=== PATIENT | female | born 1970 | race Caucasian/White ===

== ENCOUNTER 2024-11-08 09:01 | Outpatient (RCR) | payer BC, SELFPAY ==
--- NOTE | 2024-11-03 11:37 | CTCCONSULT_ITS ---
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 Camryn Cortez NP/Barbi Ren MD Reason for consultation. Patient with diagnosis of left breast in situ/strong family history of breast cancer History of Present Illness: Patient a 54-year-old lady who underwent excisional biopsy of left breast mass 08/04/[address] Grupo Villanueva gross size 14 x 10 x 9 mm. This revealed DCIS comedo and solid subtype high nuclear grade 3 microcalcification extensively present ER/MN negative Ki-67 60%. Patient underwent gene testing revealing BRIP1 Variant of Unknown Significance with ovarian breast cancer gene in pathological form. On 09/24/2024 patient underwent completion left mastectomy and simple right mastectomy with bilateral sentinel lymph node biopsy, revealing no malignancy in left and and right LCIS. Past Medical History: Prior tubal ligation endometrial ablation attention deficit disorder Family history. Multiple family history with breast cancer including 1 sibling 1 maternal aunt and 2 paternal aunts ; father had prostate cancer Meds. 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 ABD: Soft no organomegaly tenderness EXT: No sinus clubbing or edema Assessment: 1. Left breast DCIS receptors negative with strong family history of breast cancer 2. Gene testing result BRIP1 VUS noted for association with ovarian and breast cancer. 3. Underwent bilateral simple mastectomy and sentinel lymph node biopsy. 09/24/2024 4. Removal of DCIS left breast, LCIS right breast, no malignancy seen in sentinel nodes or adjacent tissues removed. No need for any adjuvant radiation therapy. 5. Has scheduled consultation with medical oncologist Dr. Alcala. 6. Thank you for allowing us to evaluate this patient. Cc Camryn Cortez NP/Barbi Ren MD Electronically signed by: Janusz Longoria MD, DABR 11/03/2024 11:35 AM
--- NOTE | 2024-11-09 01:00 | CTCCONSULT_ITS ---
Patient: JOEL BANG : 1970 MR#: [id number] Page 2 of 3 CONSULTATION NOTE DATE OF CONSULTATION: 11/08/2024 NAME: JOEL BANG ACCOUNT: [id number] : 1970 AGE: 54 REFERRING PHYSICIAN: Grupo Villanueva MD PRIMARY PHYSICIAN: Grupo Villanueva MD REASON FOR VISIT: Consult for DCIS and LCIS ONCOLOGY HISTORY: DIAGNOSIS: Intraductal carcinoma in situ of left breast [ICD10] D05.12 DATE OF DIAGNOSIS: DCIS - Left breast - dx 08/04/2024 LCIS - Right breast - dx 09/24/24 STAGE/TNM: DCIS - Left breast - dx 08/04/2024 LCIS - Right breast - dx 09/24/24 TREATMENT HISTORY: Care?Plan Start?Date Cycle Day Intent HISTORY OF PRESENT ILLNESS: 54-year-old female with DCIS and LCIS s/p bilateral mastectomy .. 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 Alive Women's Multivitamin - 4.5 mg iron- 120 mcg-60 mcg 1 tab Daily 2. Vitamin D3 - 5,000 unit 1 tab Daily 3. Vyvanse - 50 mg 1 Capsule Daily Medications Last Reconciled by Cheryl Rodriguez RN on 11/08/2024 ALLERGIES: No Known Drug Allergies REVIEW OF SYSTEMS: A complete 14-point review of systems was performed and is negative except as noted in interval history. PHYSICAL EXAMINATION: VITAL SIGNS: Temperature?99, B/P?157/101, Height?62.5?inches, Oxygen?Saturation?99% Weight?124?lbs (Change?since?11/03/24:?0?lbs) PAIN: 0 - No pain ECOG Performance Status: 0 - Asymptomatic and fully active GENERAL APPEARANCE: Appears well, in no apparent distress, appropriately interactive. HEENT: Normocephalic, no temporal wasting, normal conjunctiva, no scleral icterus, normal hearing, lips without lesions, neck normal range of motion. CARDIOVASCULAR: Not assessed. PULMONARY: Normal respiratory effort, no respiratory distress or use of accessory muscles, speaking in full sentences, no tachypnea or cyanosis. SKIN: Normal skin appearance. NEUROLOGIC: Alert and oriented x4. PSHYCHIATRIC: Appropriate affect, mood normal, behavior normal, intact thought and speech. LABORATORY DATA: I have personally reviewed and interpreted each of the patient?s relevant lab tests, abnormal findings are below: Date ASSESSMENT/PLAN: DCIS and LCIS 54 yr old female to establish care for DCIS and LCIS An abnormal gene associated with breast cancer and ovarian cancer s/p bilateral mastectomy refer to gynecology for oophorectomy ORDERS: Order # Description [id number] RETURN TO CLINIC: 3 months BILLING AND COMPLIANCE: I reviewed external records from providers outside my specialty as summarized above. I spent a total of 50 minutes on this patient?s care on the day of their visit excluding time spent related to any billed procedures. This time includes time spent with the patient as well as time spent documenting in the medical record, reviewing patients records and tests, obtaining history, placing orders, communicating with other healthcare professionals, counseling the patient, family or caregiver, and/or care coordination for the diagnoses above. Electronically Signed by: Peter Alcala MD T: 12:58 AM CC: PCP: Grupo Villanueva Referring: Grupo Villanueva This document was completed utilizing speech recognition software. Grammatical errors, random word insertions, pronoun errors, and incomplete sentences are an occasional consequence of this system due to software limitations, ambient noise, and hardware issues. Any formal questions or concerns about the content, text or information contained within the body of this dictation should be directly addressed to the provider for clarification.
== END 2024-11-15 23:59 | disposition home or self-care (01) ==
LOC: SCTC 09:01
PROVIDERS: PCP Family Medicine; Referring Provider Surgery; Visit Provider Radiology Therapeutic Radiology
DX: D05.01 Lobular carcinoma in situ of right breast (principal); D05.12 Intraductal carcinoma in situ of left breast; Z17.1 Estrogen receptor negative status [ER-]; Z17.22 Progesterone receptor negative status; Z90.13 Acquired absence of bilateral breasts and nipples
CPT/HCPCS: 99213; G0463

== ENCOUNTER 2024-12-07 08:23 | Outpatient (AMB) | payer MEDICAID, SELFPAY ==
[2024-12-07 08:33] VITALS: BP 143/92; PULSE 18; RESP 18; TEMP 36.2; O2SAT 99; BMI 21.9
--- NOTE | 2024-12-07 08:33 | AMB.GYNCLNOT ---
Vital Signs 12/07/24 08:33 Height 1.6 m Height Method Stated Weight 56.245 kg Weight Measurement Method Standing Scale BMI 21.9 BP 143/92 H Blood Pressure Source Automatic Cuff Blood Pressure Location Left Upper Arm Position Sitting Respiration 18 Pulse 18 L Pulse Source Monitor Temp 97.2 F Temp Source Oral Pulse Oximetry (%) 99 Oxygen Delivery Method Room Air Allergies/Home Meds Allergies & Medications Allergies No Known Allergies Allergy (Verified 12/07/24 08:36) Medication Reconciliation ibuprofen 800 mg tablet 800 mg PO TID #30 tabs 09/26/17 [Rx Confirmed 12/07/24] Intake Visit Data Collection New Patient or Established: Established Patient (seen at [facility] within 3 years) Reason for Visit:: Patient requests ovary removal due to positive BRCA gene test and history of bilateral breast cancer Seen by Clinical Staff ONLY (RN/MA): No Corporate Giving Manager Required: No Do You Feel Safe at Home: Yes Authorities Contacted: N/A PCP or OBGYN visit in last 3 months: Yes Date of Last PCP or OBGYN visit: 11/08/24 Hx Now: No Are you currently on any form of Control: No Pain Present Currently: No Pain Scale Used: Baker-Tucker/Numerical Pain scale:: 0 Smoking Status Smoking Status: Current every day smoker Cessation Counseling Provided: AMY was advised that quitting smoking is the single most important factor to protect the health of themselves and their family. Discussed the benefits of quitting smoking with patient. Encouraged patient to quit smoking and provided Cessation assistance materials and resources. Tobacco Use: Cigarette Years smoked: 20 Are you interested in Quitting?: Yes Would you like additional Smoking Cessation Counseling?: Yes Clinical Team Manager history Clinical Team Manager History Menstrual regularity: irregular Flow: normal Monthly: No Age at menarche: 12 Currently sexually active: No Questionnaires Covid-19 Vaccine Questionnaire Has patient been vacinated for Covid-19 Have you been vacinated for Covid-19: Yes PHQ-9 PHQ-2 Over the last 2 weeks, how often have you been bothered by any of the following problems? 1. Little interest or pleasure in doing things: not at all 2. Feeling down, depressed, or hopeless: not at all Total score: 0 PHQ-9 3. Trouble falling or staying asleep, or sleeping too much: Not at all 4. Feeling tired or having little energy: Not at all 5. Poor appetite or overeating: Not at all 6. Feeling bad about yourself - or that you are a failure or have let yourself or your family down: Not at all 7. Trouble concentrating on things, such as reading the newspaper or watching television: Not at all 8. Moving or speaking so slowly that other people could have noticed? - Or the opposite - being so fidgety or restless that you have been moving around a lot more than usual: not at all 9. Thoughts that you would be better off or of hurting yourself in some way: Not at all Total score: 0 If you checked off any problems, how difficult have these problems made it for you to do your work, take care of things at home, or get along with other people?: not difficult at all Source: Developed by Drs. Vipul Moreira, Apple Gamble, Francisco Alvarez and colleagues, with an educational eri from [employer]. Depression screen completed yes Social History Living Situation History Marital Status: Single Lives With: Family Housing: Apartment Tobacco History Smoking Status: Current every day smoker Alcohol History Alcohol Intake: Never Domestic Abuse History Do You Feel Safe at Home: Yes Past Medical History Past Medical History Have you ever been diagnosed with any of the following: Stomache/Intestinal Problems Hepatitis: No Colorectal Cancer: No Gastroesophageal Reflux Disease: Yes Reproductive Problems Breast Cancer: No Endometriosis: Yes (FOR THIS PROC) Genital Herpes: No Gonorrhea: No Pelvic Inflammatory Disease: Yes Syphilis: No Musculoskeletal Problems Bone Cancer: No Blood Problems Anemia: No Leukemia: No Hemophilia: No Thalassemia: No Sickle Cell Disease: No Clotting Problems: No Psychologic Problems Depression: Yes (NO CURRENT MEDS) Other Problems Hospitalization: No Down Syndrome: No Developmental Delay: No Shingles: No Falls: No Blood Transfusions: No Blood Transfusion Reaction: No Anesthesia Reactions: No Organ Transplant: No Chemotherapy: No Radiation Therapy: No Hyperbaric Therapy: No MRSA: No VRSA: No Vancomycin-Resistant Enterococci: No Human Immunodeficiency Virus (HIV): No Chicken Pox: No Measles: No Mumps: No Rubella (Armenian Measles): No Pertussis: No Clostridium Difficile: No Cervical Cancer: No Lung Cancer: No Ovarian Cancer: No Surgical History Thyroidectomy: No History of Present Illness RASHEEDA Mihir Teresa, a patient with a history of breast cancer and positive BRCA gene testing, presents for consultation regarding prophylactic bilateral oophorectomy. She was diagnosed with breast cancer in both breasts earlier this year, with the right breast cancer discovered incidentally during surgery for the left breast on September 24, 2024. The patient underwent genetic testing, which revealed a positive result for a BRCA mutation, putting her at higher risk for breast and ovarian cancer. Ms. Teresa reports a history of endometriosis and an endometrial ablation in 2018, after which she has not had any menstrual periods. She has experienced significant weight loss, which she attributes to the stress of cancer treatments and related procedures. The patient also mentions a history of seeing Dr. Walker at [facility] in the past. The patient expresses a desire to have her ovaries removed due to her increased risk of ovarian cancer associated with the BRCA mutation. She appears well-informed about her condition and the recommended preventive measures. Ms. Teresa mentions that [facility] has reviewed her genetic test results and has requested a CA 125 test as part of her follow-up care. Medical History - Breast cancer, diagnosed in both breasts - BRCA gene mutation (specific type not mentioned) - Endometriosis Surgical History - Bilateral mastectomy on September 24, 2024 for breast cancer - Endometrial ablation in 2018 for endometriosis Family History - Patient: Positive for BRCA gene mutation (specific type not mentioned) Social History - Occupation: Works at [employer] - Stress: Patient reports being under significant stress due to cancer treatments Review of Systems General: Positive for weight loss. Review of Systems Review of Systems Systems Reviewed: All systems reviewed, normal except as documented Exam General Limitations: no limitations General Appearance: alert, in no apparent distress, comfortable, cooperative, healthy appearing, well developed and well groomed Head Head exam: atraumatic, normocephalic and normal inspection Neck Neck exam: Present normal inspection, full ROM and trachea midline Chest Chest inspection: Present normal inspection and symmetric chest wall rise Abdominal Abdominal exam: Present soft and normal bowel sounds Psych Psychiatric exam: Present normal affect and normal mood Skin Skin exam: Present warm, dry, intact and normal color Assessment & Plan Diagnosis / Problem List (1) BRCA gene mutation positive: Status: Acute (2) Endometriosis: Status: Acute (3) S/P endometrial ablation: Status: Acute (4) Weight loss observed on examination: Status: Acute Plan Amy Teresa, female patient with history of bilateral breast cancer, positive BRCA gene mutation, and endometriosis, presenting for ovarian cancer risk reduction surgery. BRCA gene mutation with history of bilateral breast cancer Assessment: Patient reports positive BRCA gene testing, which puts her at higher risk for breast and ovarian cancer. She has a history of bilateral breast cancer, with cancer found in both breasts. The left breast cancer was diagnosed first, leading to the discovery of cancer in the right breast during mastectomy. Bilateral mastectomies were performed on September 24, 2024. The specific BRCA mutation (BRCA1 or BRCA2) is currently unknown and needs to be confirmed. Plan: - Obtain BRCA gene test results from Dr. Villanueva' office or Dr. Vargas at the [facility] - Initiate insurance approval process for bilateral salpingo-oophorectomy - Schedule laparoscopic bilateral salpingo-oophorectomy on a (surgeon's block time) - Procedure to be performed as outpatient surgery - Patient to arrive at 6:30 AM, surgery around 8:00-8:30 AM - Estimated discharge around 10:30 AM - Provide post-operative instructions: - Bed rest for a couple of days - Gradual return to normal activities - Expect soreness, particularly at incision sites - Send ovarian tissue to pathology for thorough examination - Follow up with patient if any abnormalities are found in pathology report Elevated ovarian cancer risk Assessment: Due to the patient's positive BRCA gene mutation and history of bilateral breast cancer, she is at increased risk for ovarian cancer. The patient is seeking risk-reducing surgery (bilateral salpingo-oophorectomy) to address this elevated risk. Plan: - Order CA-125 test as requested by Dr. Vargas - Provide [facility] order sheet for CA-125 test History of endometriosis and endometrial ablation Assessment: Patient reports a history of endometriosis and endometrial ablation performed in 2018. She has not had a menstrual period since the ablation, indicating successful treatment. Plan: - No specific interventions required at this time - Consider menopausal status during preoperative evaluation for bilateral salpingo-oophorectomy Weight loss Assessment: Patient has experienced significant weight loss, which she attributes to stress related to cancer treatments and recent health issues. Plan: - Monitor weight during follow-up visits - Assess nutritional status as part of preoperative evaluation Office Procedures OB Clinic LOC & Office Proc's Nursing/Assessment Patient Status: Established Patient OB Clinic Nursing Assessment: BP Monitoring, Medication Reconciliation, Update PMH in EMR and Vital Signs OB Clinic Coordination of Care: Consent,records obtained, informed consent, Education Simp Pt/Fam, Lab and Imaging orders and Staff clarify orders Established Patient Charge Established Patient Point Assignment: 90 Established Patient Point Charge: EP Level 3 (80-115)
== END 2024-12-07 09:01 | disposition home or self-care (01) ==
LOC: HODSOBC 08:23
PROVIDERS: PCP Family Medicine; Referring Provider Family Medicine; Supervising Provider Obstetrics & Gynecology; Visit Provider Obstetrics & Gynecology
DX: Z40.02 Encounter for prophylactic removal of ovary(s) (principal); Z85.3 Personal history of malignant neoplasm of breast; Z87.42 Personal history of other diseases of the female genital tract; R63.4 Abnormal weight loss; Z68.21 Body mass index [BMI] 21.0-21.9, adult; Z15.01 Genetic susceptibility to malignant neoplasm of breast; F17.210 Nicotine dependence, cigarettes, uncomplicated; Z71.6 Tobacco abuse counseling; Z90.13 Acquired absence of bilateral breasts and nipples
CPT/HCPCS: 99213; G0463

== ENCOUNTER → 2024-12-07 | Outpatient (CLI) | payer MEDICAID, SELFPAY ==
--- NOTE | 2024-12-07 14:20 | XR_ITS ---
Examination: Bone densitometry Date and time of exam:December 07, 2024 1444 hours INDICATIONS: Menopause age 50, family history mother osteoporosis and hip fracture Technique: Lumbar spine and hip total bone mineralization values of an calculated. Peak reference and age match control results have been displayed. Findings: Lumbar spine total bone mineralization is0.903 gm/cm2. This is 1.3 standard deviations below peak reference. This is 0.4 standard deviations below age-matched controls. Hip total bone mineralization is 0.782 gm/cm2 This is 1.3 standard deviations below peak reference. This is 0.8 standard deviations below age-matched controls Impression: There is osteopenia based on lumbar spine measurements. There is osteopenia based on hip measurements
== END | disposition home or self-care (01) ==
PROVIDERS: PCP Registered Nurse Community Health; Referring Provider Internal Medicine Hematology & Oncology; Visit Provider Internal Medicine Hematology & Oncology
DX: M85.89 Other specified disorders of bone density and structure, multiple sites (principal); D05.12 Intraductal carcinoma in situ of left breast
CPT/HCPCS: 77080

== ENCOUNTER → 2024-12-09 | Outpatient (CLI) | payer MEDICAID, SELFPAY ==
--- NOTE | 2024-12-09 14:00 | XR_ITS ---
Examination: Thyroid sonography complete TECHNIQUE: Grayscale sonographic images thyroid lobes Exam date and time: December 09, 2024 1404 hours INDICATIONS: Ultrasound soft tissue neck multiple lymph nodes left neck March 15, 2024, palpable lump in the left side of the neck note is beginning 18 months ago FINDINGS: Right thyroid 5.0 cm 4 mm lower pole nodule Left thyroid 4.8 cm No solid nodules IMPRESSION: Small right thyroid nodule 4 x 2 x 4 mm
== END | disposition home or self-care (01) ==
LOC: CDIM 13:29
PROVIDERS: Referring Provider Registered Nurse Community Health; Visit Provider Registered Nurse Community Health
DX: E04.1 Nontoxic single thyroid nodule (principal)
CPT/HCPCS: 76536

== ENCOUNTER 2025-02-08 12:52 | Outpatient (RCR) | payer MEDICAID, SELFPAY ==
--- NOTE | 2025-03-14 13:04 | CTCFLWUP_ITS ---
Patient: JOEL BANG : 1970 Page 2 of 2 FOLLOW UP NOTE DATE OF SERVICE: 02/08/2025 NAME: JOEL BANG ACCOUNT: [id number] : 1970 AGE: 54 INTERVAL HISTORY: No new complains ONCOLOGY HISTORY: DIAGNOSIS: Intraductal carcinoma in situ of left breast [ICD10] D05.12 DATE OF DIAGNOSIS: DCIS - Left breast - dx 08/04/2024 LCIS - Right breast - dx 09/24/24 STAGE/TNM: DCIS - Left breast - dx 08/04/2024 LCIS - Right breast - dx 09/24/24 TREATMENT HISTORY: Care?Plan Start?Date Cycle Day Intent HISTORY OF PRESENT ILLNESS: 54-year-old female with DCIS and LCIS s/p bilateral mastectomy .. OTHER MEDICAL HISTORY/CONDITIONS: DCIS - Left breast - dx 08/04/2024 LCIS - Right breast - dx 09/24/24 Attention Deficit Disorder Depression Degenerative Disc disease Mahendra simple mastecomies with [facility] - Uterine Ablation - 2017 and BTL - 1993 FAMILY HISTORY: Father:?Prostated?-?dx?age?40 Children: PAt grandmother- breast - dx 60's Cancer History:?Mat ayrq-vasmml-fr 40's; Pat zlhq-lrhiec-uw age unknown SOCIAL HISTORY: Occupational?History:?[employer] Education?Level:?6-Attended?Vocational?School,?did?not?graduate Marital?Status:?Single Tobacco Use:?Quit 2yrs ago- Smoked 10 cigarettes/day x 7 yrs ETOH?Use:?Socially Drug?Note:?Denies Social?History?Note:?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 Alive Women's Multivitamin - 4.5 mg iron- 120 mcg-60 mcg 1 tab Daily 2. Vitamin D3 - 5,000 unit 1 tab Daily 3. Vyvanse - 50 mg 1 Capsule Daily Medications Last Reconciled by Fernanda Bhatt MA on 02/08/2025 ALLERGIES: No Known Drug Allergies REVIEW OF SYSTEMS: A complete 14-point review of systems was performed and is negative except as noted in interval history. PHYSICAL EXAMINATION: VITAL SIGNS: Temperature?99.8, B/P?159/97, Oxygen?Saturation?93% Weight?123?lbs ECOG Performance Status: 0 - Asymptomatic and fully active GENERAL APPEARANCE: Appears well, in no apparent distress, appropriately interactive. HEENT: Normocephalic, no temporal wasting, normal conjunctiva, no scleral icterus, normal hearing, lips without lesions, neck normal range of motion. CARDIOVASCULAR: Not assessed. PULMONARY: Normal respiratory effort, no respiratory distress or use of accessory muscles, speaking in full sentences, no tachypnea or cyanosis. SKIN: Normal skin appearance. NEUROLOGIC: Alert and oriented x4. PSHYCHIATRIC: Appropriate affect, mood normal, behavior normal, intact thought and speech. LABORATORY DATA: I have personally reviewed and interpreted each of the patient?s relevant lab tests, abnormal findings are below: Date ASSESSMENT/PLAN: DCIS and LCIS 54 yr old female to establish care for DCIS and LCIS An abnormal gene associated with breast cancer and ovarian cancer s/p bilateral mastectomy refer to gynecology for oophorectomy ORDERS: Order # Description [id number] Comprehensive Metabolic Panel - 12 + CBC with Auto Diff [id number] MD Follow Up 1 Year [id number] RETURN TO CLINIC: I reviewed the diagnosis, prognosis, and recommended treatment/procedure options with the patient (and/or their legal manufacturers representative), including the potential benefits, risks, side effects and alternative therapies. We also discussed the option of no treatment and the possibility of clinical trial participation, if applicable. All questions were addressed, and they demonstrated understanding. They provided informed consent to proceed with the proposed plan of care. BILLING AND COMPLIANCE: I reviewed external records from providers outside my specialty as summarized above. I spent a total of 50 minutes on this patient?s care on the day of their visit excluding time spent related to any billed procedures. This time includes time spent with the patient as well as time spent documenting in the medical record, reviewing patients records and tests, obtaining history, placing orders, communicating with other healthcare professionals, counseling the patient, family or caregiver, and/or care coordination for the diagnoses above. Electronically Signed by: Peter Alcala MD T: 1:01 PM CC: PCP: Peter Alcala Referring: Peter Alcala This document was completed utilizing speech recognition software. Grammatical errors, random word insertions, pronoun errors, and incomplete sentences are an occasional consequence of this system due to software limitations, ambient noise, and hardware issues. Any formal questions or concerns about the content, text or information contained within the body of this dictation should be directly addressed to the provider for clarification.
== END 2025-02-14 23:59 | disposition home or self-care (01) ==
LOC: SCTC 12:52
PROVIDERS: PCP Registered Nurse Community Health; Referring Provider Internal Medicine Hematology & Oncology; Visit Provider Internal Medicine Hematology & Oncology
DX: D05.12 Intraductal carcinoma in situ of left breast (principal); D05.01 Lobular carcinoma in situ of right breast; Z90.13 Acquired absence of bilateral breasts and nipples
CPT/HCPCS: 99212; G0463

== ENCOUNTER → 2025-02-09 | Outpatient (CLI) | payer MEDICAID, SELFPAY ==
--- NOTE | 2025-02-09 15:45 | XR_ITS ---
Examination: MRI cervical spine without intravenous contrast Date and time of exam: February 09, 2025 1603 hours Comparison September 16, 2023 INDICATIONS: Neck pain 6 years radiating down the arms and weakness in the hands Technique: Multiple axial and sagittal sections of the cervical spine to been obtained. T2 weighted sagittal sections, TR 3, 270, TE 117 T1-weighted sagittal sections, TR 500, TE 11 T1-weighted axial sections, TR 607, TE 12, axial sections TR 18, TE 27 and T2 weighted transverse sections, TR 3920, TE 122. Findings: Adequate alignment cervical vertebral bodies No cervical fracture Advanced degenerative disc disease C5-C6 with reactive bony endplate change Hemangiomatous change T2 No localized enlargement thoracic cord C2-C3 no disc protrusion C3-C4 mild right neural foraminal stenosis C4-C5 no disc protrusion C5-C6 3 mm central subarticular osteophyte disc complex, moderate bilateral neural foraminal stenosis C6-C7 no disc protrusion C7-T1 no disc protrusion IMPRESSION: Advanced degenerative disc disease C5-C6 C5-C6 3 mm central subarticular osteophyte disc complex with moderate bilateral neural foraminal stenosis
== END | disposition home or self-care (01) ==
PROVIDERS: PCP Registered Nurse Community Health; Referring Provider Registered Nurse Community Health; Visit Provider Registered Nurse Community Health
DX: M50.322 Other cervical disc degeneration at C5-C6 level (principal); M48.02 Spinal stenosis, cervical region; M25.78 Osteophyte, vertebrae
CPT/HCPCS: 72141

== ENCOUNTER → 2025-02-21 | Outpatient (CLI) | payer MEDICAID, SELFPAY ==
--- NOTE | 2025-02-21 10:16 | XR_ITS ---
Exam: elbow bilateral, 6 views Technique: Elbow AP, oblique each elbow total 6 views Exam date and time: February 21, 2025 1037 hours INDICATIONS: Elbow pain 2 years FINDINGS: Mild bilateral elbow osteoarthritis No fractures No dislocations. No erosive arthritis IMPRESSION: Mild bilateral elbow osteoarthritis.
--- NOTE | 2025-02-21 10:16 | XR_ITS ---
Examination: Bilateral wrists 5 views TECHNIQUE: Bilateral AP wrist single view Right and left oblique, right and left lateral wrist 4 views total 5 views Date and time: February 21, 2025 1029 hours INDICATIONS: Bilateral wrist pain 2 years. FINDINGS: Moderate osteopenia Mild diffuse narrowing radiocarpal intercarpal carpometacarpal joints No erosive arthritis No fractures No avascular necrosis IMPRESSION: Mild diffuse narrowing radiocarpal, intercarpal, carpometacarpal joints
--- NOTE | 2025-02-21 10:16 | XR_ITS ---
Examination: Bilateral hands, 5 views. Technique: Bilateral AP hands single view, right and left oblique, right and left lateral hands total 5 views Date and time of exam: February 21, 2025 1025 hours INDICATIONS: Bilateral hand pain 2 years Findings: Moderate juxta-articular bone demineralization No fracture or dislocation involving either hand No erosive or other significant arthritic change involving either hand No opaque foreign bodies No cortical bone destruction IMPRESSION: No erosive or other significant arthritic change involving either hand
== END | disposition home or self-care (01) ==
PROVIDERS: PCP Registered Nurse Community Health
DX: M79.641 Pain in right hand (principal); M79.642 Pain in left hand; M19.022 Primary osteoarthritis, left elbow; M19.021 Primary osteoarthritis, right elbow; M25.832 Other specified joint disorders, left wrist; M25.831 Other specified joint disorders, right wrist
CPT/HCPCS: 73080; 73110; 73130